=== PATIENT | female | born 1980 | race Caucasian/White ===

== ENCOUNTER 2017-11-29 08:15 | Emergency (ER) | payer OTHER ==
[2017-11-29] MEDS ORDERED: Ketorolac INJ* 30 MG/ML 1 ML VIAL IV PUSH ONE (08:40)
[2017-11-29 09:38] LABS: ABS Basophils 0.2 10^3/ul (0-0.2); ABS Eosinophils 0.2 10^3/ul (0-0.6); ABS Lymphocytes 3.7 10^3/ul (1.0-4.8); ABS Monocytes 1.4 10^3/ul (0-0.8); ABS Neutrophils 9.1 10^3/ul (1.5-7.7); ABS Nucleated RBC 0 10^3/ul; Hematocrit 41 % (35-47); Hemoglobin 14.2 g/dl (12.0-16.0); Lymphocyte % 25.4 % (25-47); Mean Corpuscular HGB Conc 34 g/dl (31-36); Mean Corpuscular Hemoglobin 32 pg (27-31); Mean Corpuscular Volume 92 fL (80-97); Nucleated Red Blood Cells % 0; Platelet Count 268 10^3/ul (150-450); Red Blood Count 4.49 10^6/ul (4.0-5.4); Red Cell Distribution Width 13 % (10.5-15); White Blood Count 14.6 10^3/ul (3.5-10.8)
[2017-11-29 09:46] LABS: INR 1.1 (0.77-1.02)
[2017-11-29 10:05] LABS: EGFR Non-African American 68.7 (>60)
[2017-11-29] MEDS ORDERED: Iohexol 350* (CONTRAST) 500 ML MDV IV ONE (10:17)
--- NOTE | 2017-11-29 11:17 | RAD ---
INDICATION: Chest pain. Short of breath. Evaluate for pulmonary embolus. COMPARISON: There is no current chest x-ray for comparison. TECHNIQUE: Axial source images were obtained from the thoracic inlet to the hemidiaphragms following administration of [address] angiographic technique was utilized. Coronal and sagittal reconstructed images were acquired. CHEST FINDINGS: Neck/thyroid: The visualized neck to include the thyroid appear normal. Chest wall: There are no acute abnormalities of the bony thorax or chest wall. There is no supraclavicular, infraclavicular, or axillary lymphadenopathy. Lungs : There are moderate-sized basilar consolidative changes. Suggest chest x-ray follow-up to document resolution. The pulmonary interstitium appears normal. There are no endobronchial lesions. Cardiomediastinal structures: There is no CT evidence of acute pulmonary embolic disease. The heart is normal in size. There is no pericardial effusion. There is no evidence of aortic aneurysm or dissection. There is mild annuloaortic ectasia with the aortic root measuring 3.5 x 3.7 cm. There is no mediastinal or hilar adenopathy. The esophagus appears normal. Pleura : There are no pleural-based masses or effusions. Other: There are clips in the gallbladder fossa. There is hepatomegaly with hepatic steatosis IMPRESSION: NO CT EVIDENCE OF ACUTE PULMONARY EMBOLUS. BIBASILAR INFILTRATES/ATELECTASIS WITH CONSOLIDATION. MILD ANNULOAORTIC ECTASIA.
[2017-11-29 12:31] VITALS: BP 132/74
--- NOTE | 2017-11-29 12:57 | ED ---
Respiratory - HPI Summary HPI Summary: Patient is a 37-year-old female who presents emergency department for right- sided chest wall pain and shortness of breath times several days. Patient states she's been having swelling and pain to her right lower leg times one week. She was reportedly seen at [facility] ER and had a negative venous doppler for DVT. Patient has a significant past medical history for pulmonary emboli in the past. She states they're not sure why she developed clots but states that numerous family members have had had blood clots as well. Pt. is currently not anticoagulated. Patient is a daily smoker. She otherwise denies symptoms and past medical history of lung problems. Denies recent illness, cough, fever , vomiting, diarrhea, abdominal pain. Symptoms are moderate in severity. Movement and deep inspiration makes symptoms worse. Nothing makes symptoms better. - History of Current Complaint Chief Complaint: EDShortnessOfBreath Stated Complaint: RT SIDE RIB/LEG PAIN Time Seen by Provider: 11/29/17 08:34 Hx Obtained From: Patient Pain Intensity: 0 - Allergy/Home Medications Allergies/Adverse Reactions: Allergies Allergy/AdvReac Type Severity Reaction Status Date / Time No Known Allergies Allergy Verified 11/29/17 08:28 Home Medications: Home Medications NK [No Home Medications Reported] 11/29/17 [History Confirmed 11/29/17] PMH/Surg Hx/FS Hx/Imm Hx Previously Healthy: Yes Endocrine/Hematology History: Denies: Hx Diabetes Cardiovascular History: Denies: Hx Hypertension, Hx Pacemaker/ICD Sensory History: Denies: Hx Hearing Aid Psychiatric History: Denies: Hx Panic Disorder - Surgical History Surgery Procedure, Year, and Place: 3 C-SECTIONS. ADNOIDS. GALLBLADDER Infectious Disease History: No Infectious Disease History: Denies: Traveled Outside the [place] in Last 30 Days - Social History Occupation: Employed Full-time Lives: With Family Alcohol Use: Occasionally Substance Use Type: Reports: None Smoking Status (MU): Current Every Day Smoker Review of Systems Constitutional: Negative Negative: Fever, Chills Eyes: Negative ENT: Negative Positive: Chest Pain Positive: Shortness Of Breath Gastrointestinal: Negative Negative: Abdominal Pain, Vomiting, Diarrhea Genitourinary: Negative Musculoskeletal: Negative Skin: Negative Neurological: Negative All Other Systems Reviewed And Are Negative: Yes Physical Exam Triage Information Reviewed: Yes Vital Signs On Initial Exam: Initial Vitals Temp Pulse Resp BP Pulse Ox 97.6 F 60 40 180/80 94 11/29/17 08:23 11/29/17 08:23 11/29/17 08:23 11/29/17 08:23 11/29/17 08:23 Vital Signs Reviewed: Yes Appearance: Positive: Pain Distress - Pt. sitting up in bed, hyperventilating. Family present. Skin: Positive: Warm, Dry Head/Face: Positive: Normal Head/Face Inspection Eyes: Positive: Normal Neck: Positive: Supple Respiratory/Lung Sounds: Positive: Clear to Auscultation, Breath Sounds Present. Negative: Rales, Rhonchi, Stridor, Wheezes Cardiovascular: Positive: Normal, RRR Neurological: Positive: Normal, CN Intact II-III Psychiatric: Positive: Anxious Diagnostics - Vital Signs Vital Signs Temp Pulse Resp BP Pulse Ox 11/29/17 12:00 98.3 F 88 20 132/74 97 11/29/17 10:00 87 25 95 11/29/17 09:13 87 36 107/72 94 11/29/17 09:00 97 44 94 11/29/17 08:41 96 32 94 11/29/17 08:23 97.6 F 60 40 180/80 94 - Laboratory Lab Results: Lab Results 11/29/17 11/29/17 11/29/17 Range/Units 09:24 09:24 09:24 WBC 14.6 H (3.5-10.8) 10^3/ul RBC 4.49 (4.0-5.4) 10^6/ul Hgb 14.2 (12.0-16.0) g/dl Hct 41 (35-47) % MCV 92 (80-97) fL MCH 32 H (27-31) pg MCHC 34 (31-36) g/dl RDW 13 (10.5-15) % Plt Count 268 (150-450) 10^3/ul MPV 8.0 (7.4-10.4) um3 Neut % (Auto) 62.2 (38-83) % Lymph % (Auto) 25.4 (25-47) % Taylor % (Auto) 9.7 H (0-7) % Eos % (Auto) 1.0 (0-6) % Baso % (Auto) 1.7 (0-2) % Absolute Neuts (auto) 9.1 H (1.5-7.7) 10^3/ul Absolute Lymphs (auto) 3.7 (1.0-4.8) 10^3/ul Absolute Monos (auto) 1.4 H (0-0.8) 10^3/ul Absolute Eos (auto) 0.2 (0-0.6) 10^3/ul Absolute Basos (auto) 0.2 (0-0.2) 10^3/ul Absolute Nucleated RBC 0 10^3/ul Nucleated RBC % 0 INR (Anticoag Therapy) 1.10 H (0.77-1.02) Sodium 135 L (139-145) mmol/L Potassium 3.6 (3.5-5.0) mmol/L Chloride 104 (101-111) mmol/L Carbon Dioxide 19 L (22-32) mmol/L Anion Gap 12 H (2-11) mmol/L BUN 11 (6-24) mg/dL Creatinine 0.92 (0.51-0.95) mg/dL Est GFR ( Amer) 88.3 (>60) Est GFR (Non-Af Amer) 68.7 (>60) BUN/Creatinine Ratio 12.0 (8-20) Glucose 96 (70-100) mg/dL Calcium 9.2 (8.6-10.3) mg/dL Total Bilirubin 1.00 (0.2-1.0) mg/dL AST 15 (13-39) U/L ALT 15 (7-52) U/L Alkaline Phosphatase 71 (34-104) U/L Troponin I 0.00 (<0.04) ng/mL Total Protein 7.4 (6.4-8.9) g/dL Albumin 3.8 (3.2-5.2) g/dL Globulin 3.6 (2-4) g/dL Albumin/Globulin Ratio 1.1 (1-3) Beta HCG, Quant < 0.60 mIU/mL Result Diagrams: 11/29/17 09:24 11/29/17 09:24 Lab Statement: Any lab studies that have been ordered have been reviewed, and results considered in the medical decision making process. Disposition - Course Course Of Treatment: Patient presenting to the ER for pleuritic chest pain and shortness of breath, recent leg swelling and pain, and history of pulmonary emboli. She is afebrile stable vital signs. Oxygen saturation is 94% on room air which is low normal. Given patient's significant history in symptoms today Will obtain CTA chest to rule out PE. Labs and EKG were ordered. Patient was given a dose of Toradol for pain. EKG done at 0845 shows a sinus rhythm of for beats per minute, normal axis, appropriate intervals, no ST elevation or depression. Labs are unremarkable other than elevated WBC of 15,000. CTA is negative for PE or acute findings, reading per radiology. On reexamination patient is resting much more comfortably and eating popcorn. She states pain has greatly improved since Toradol. Suspect pleurisy. Advised patient to take anti-inflammatories at home for pain. To call PCP today to schedule close follow-up appointment. To return to the ear symptoms change or worsen. Patient understands and agrees with plan. - Differential Dx - Cardiopulmonary Differential Diagnoses - Cardiopulmonary: Chest Wall Pain, Hypoxia, Myocardial Infarction, Panic Disorder, Pericarditis, Pleurisy, Pneumothorax, Pulmonary Edema, Pulmonary Embolism - Diagnoses Provider Diagnoses: Pleurisy Discharge - Sign-Out/Discharge Documenting (check all that apply): Discharge/Admit/Transfer - Discharge Plan Condition: Good Disposition: HOME Patient Education Materials: Pleurisy (ED) Referrals: Mj WONG,Jeremie Enriquez [Primary Care Provider] - Additional Instructions: Call PCP today for a follow up appointment NSAIDS for pain as directed Return to ER if symptoms change or worsen - Billing Disposition and Condition Condition: GOOD Disposition: HOME
== END 2017-11-29 12:00 | disposition home or self-care (01) ==
LOC: ED 08:15
DX: R09.1 Pleurisy (principal); F17.200 Nicotine dependence, unspecified, uncomplicated
CPT/HCPCS: 36415; 71275; 80053; 84484; 84702; 85025; 85610; 93005; 96374; 96375; 99283; J1885; Q9967

== ENCOUNTER 2023-12-03 00:49 | Observation (INO) ==
[2023-12-03 02:35] LABS: Hematocrit 39.9 % (35-45); Mean Corpuscular Hemoglobin 32.2 pg (27-33); Mean Platelet Volume 7.7 fL (7.5-11.2); Platelet Count 265 10^3/uL (150-450); Red Blood Count 4.34 10^6/uL (3.63-4.92); Red Cell Distribution Width 12.9 % (12-17)
[2023-12-03 03:04] LABS: ALT 14 U/L (7-52); AST 16 U/L (13-39); Albumin 4.1 g/dL (3.2-5.2); Albumin/Globulin Ratio 1.3 (1-3); Alkaline Phosphatase 73 U/L (35-149); Anion Gap 15 mmol/L (2-16); Blood Urea Nitrogen 8 mg/dL (6-24); C Reactive Protein 199.83 mg/L (<8.01); CO2 Carbon Dioxide 18 mmol/L (22-32); Calcium 9.1 mg/dL (8.6-10.3); Chloride 101 mmol/L (101-111); Creatinine, Serum 1.03 mg/dL (0.51-0.95); Globulin 3.2 g/dL (2-4); Glucose 112 mg/dL (70-100); Potassium 3.9 mmol/L (3.5-5.0); Sodium 134 mmol/L (135-145); Total Bilirubin 0.9 mg/dL (0.2-1.0); Total Protein 7.3 g/dL (6.4-8.9); eGFR CKD-EPI 69.2 (>60)
[2023-12-03 03:11] LABS: HCG Pregnancy < 0.60 mIU/mL
[2023-12-03 04:06] LABS: ABS Basophils 0.3 10^3/uL (0.0-0.1); ABS Eosinophils 0.1 10^3/uL (0.0-0.5); ABS Lymphocytes 3.5 10^3/uL (1.0-4.8); ABS Monocytes 1.7 10^3/uL (0.0-0.9); ABS Neutrophils 12.4 10^3/uL (1.5-7.6); ABS Nucleated RBC 0.02 10^3/ul; Eosinophil % 0.7 %; Lymphocyte % 19.4 %; Nucleated Red Blood Cells % 0.1 %/100WBC (0.0-0.8)
[2023-12-03 04:13] LABS: Urine Appearance Clear; Urine Bilirubin Negative (Negative); Urine Blood Negative (Negative); Urine Color Yellow; Urine Glucose Negative (Negative); Urine Ketones Trace (Negative); Urine Nitrite Negative (Negative); Urine Protein Negative (Negative); Urine Specific Gravity 1.011 (1.002-1.030); Urine Urobilinogen 1+ (Negative)
[2023-12-03 04:27] LABS: Urine Bacteria 1+ /HPF (Absent); Urine Red Blood Cell Trace(0-2/hpf) /HPF (0-Trace); Urine Squamous Epithelial Cell Present /HPF (Absent); Urine White Blood Cell Trace(0-5/hpf) /HPF (0-Trace)
[2023-12-03] MEDS: Iohexol 350 (CONTRAST) 500 ML MDV IV ONE (04:42)
[2023-12-03] MEDS: NS 0.9% 1000 ml BAG 1,000 ML IV ONE (04:58)
[2023-12-03] MEDS: Ondansetron 4 mg VIAL 2 MG/ML 2 ml VIAL IV ONE (04:58)
[2023-12-03] MEDS: Morphine 4 MG/ML VIAL (1 ml) IV ONE ×2 (04:59→08:31)
[2023-12-03] MEDS: Piperacillin/Tazobac 3.375 BAG 3.375 GM/100 ML BAG IV ONE (07:50)
[2023-12-03] MEDS ORDERED: Zosyn per Pharmacy NOTE FOLLOW UP SCH (08:00)
[2023-12-03] MEDS ORDERED: Acetaminophen IV 1 GM/100ML 1,000 MG/100 ML BAG IV PRN (08:58)
[2023-12-03] MEDS ORDERED: HYDROmorphone 0.5 MG/0.5 ML SYRINGE IV SLOW PU PRN (08:59)
[2023-12-03] MEDS: levETIRAcetam 1000MG IVPREMIX 1,000 MG/100 ML BAG IVPB ONE ×2 (10:39→16:23)
[2023-12-03] MEDS ORDERED: Midazolam 5 mg/5 ml VIAL 1 mg/ml 5 ml VIAL (5 mg) ONE (11:02)
[2023-12-03] MEDS ORDERED: fentaNYL 100 mcg/2 ml 50 MCG/ML VIAL ONE ×2 (11:02→12:52)
[2023-12-03] MEDS ORDERED: Rocuronium 50 mg VIAL 10 mg/ml 5 ml VIAL (50 mg) ONE (11:03)
[2023-12-03] MEDS ORDERED: Propofol 10 MG/ML 20 ML BTL ONE (11:06)
[2023-12-03] MEDS ORDERED: Lidocaine 2% PF 5 ML VIAL ONE (11:06)
[2023-12-03] MEDS ORDERED: Lidocaine 1% w EPI 1:100,000 MDV 20 ML VIAL ONE (12:02)
[2023-12-03] MEDS ORDERED: Bupivacaine 0.5% SDV PF 30ML VIAL ONE (12:02)
[2023-12-03] MEDS ORDERED: Acetaminophen IV 1 GM/100ML 1,000 MG/100 ML BAG IV ONE (12:58)
[2023-12-03] MEDS ORDERED: HYDROmorphone 1 MG/1 ML SYRINGE IV PRN (13:04)
[2023-12-03] MEDS ORDERED: Naloxone 0.4 mg VIAL 0.4 mg/ml 1 ml VIAL IV PRN (13:04)
[2023-12-03] MEDS ORDERED: HYDROmorphone 0.5 MG/0.5 ML SYRINGE ONE (13:19)
[2023-12-03] MEDS: Heparin 5000 UNITS/ML 1 mL VIAL SUBCUT ONE (16:23)
[2023-12-03] MEDS: NS 0.9% 1000 ml BAG 1,000 ML IV SCH (16:23)
[2023-12-03] MEDS: ZOSYN 3.375 GM Q8H per EXTENDED INFUSION IV SCH ×2 (16:58→21:25)
[2023-12-03] MEDS: ZOSYN 3.375 GM x ONE DOSE over 30 miuntes IV (18:25)
[2023-12-03] MEDS: Heparin 5000 UNITS/ML 1 mL VIAL SUBCUT SCH (21:14)
[2023-12-04 10:15] VITALS: BP 125/68
== END 2023-12-04 13:40 | disposition home or self-care (01) ==
LOC: ED 00:49 → MEDTELE 09:36 → OR 09:36
PROVIDERS: ADMIT Emergency Medicine; ATTEND Surgery

== ENCOUNTER 2023-12-06 20:22 | Observation (INO) ==
[2023-12-06] MEDS ORDERED: Morphine 4 MG/ML VIAL (1 ml) ONE (20:54)
[2023-12-06] MEDS ORDERED: Ondansetron 4 mg VIAL 2 MG/ML 2 ml VIAL ONE (20:54)
[2023-12-06] MEDS: Morphine 4 MG/ML VIAL (1 ml) IV ONE ×2 (21:00→21:10)
[2023-12-06] MEDS: Ondansetron 4 mg VIAL 2 MG/ML 2 ml VIAL IV ONE (21:00)
[2023-12-06] MEDS: Lactated Ringers 1000 ml BAG 1,000 ML IV ONE (21:05)
[2023-12-06 21:14] LABS: Hematocrit 39.7 % (35-45); Hemoglobin 13.6 g/dL (11.5-14.3); Mean Corpuscular Hemoglobin 32.3 pg (27-33); Mean Corpuscular Hgb Conc 34.3 g/dL (31-36); Mean Platelet Volume 8.3 fL (7.5-11.2); Platelet Count 409 10^3/uL (150-450); Red Blood Count 4.22 10^6/uL (3.63-4.92); Red Cell Distribution Width 13.2 % (12-17)
[2023-12-06 21:25] LABS: Activated Partial Thrombo Time 25.8 seconds (26.0-38.0); INR 1.01 (0.83-1.13)
[2023-12-06 21:53] LABS: ALT 26 U/L (7-52); AST 23 U/L (13-39); Albumin/Globulin Ratio 1.3 (1-3); Alkaline Phosphatase 77 U/L (35-149); Anion Gap 21 mmol/L (2-16); Blood Urea Nitrogen 8 mg/dL (6-24); C Reactive Protein 106.39 mg/L (<8.01); CO2 Carbon Dioxide 14 mmol/L (22-32); Calcium 9.5 mg/dL (8.6-10.3); Chloride 102 mmol/L (101-111); Creatinine, Serum 0.95 mg/dL (0.51-0.95); Globulin 3.2 g/dL (2-4); Glucose 172 mg/dL (70-100); HCG Pregnancy < 0.60 mIU/mL; Potassium 3.4 mmol/L (3.5-5.0); Sodium 137 mmol/L (135-145); Total Bilirubin 0.4 mg/dL (0.2-1.0); Total Protein 7.2 g/dL (6.4-8.9); eGFR CKD-EPI 76.2 (>60)
[2023-12-06] MEDS: HYDROmorphone 1 MG/1 ML SYRINGE IV ONE (22:03)
[2023-12-06] MEDS: Iodixanol (CONTRAST) 320 MG/ML 100 ML SDV IV ONE (22:04)
[2023-12-06 22:16] LABS: ABS Basophils 0.3 10^3/uL (0.0-0.1); ABS Eosinophils 0.4 10^3/uL (0.0-0.5); ABS Neutrophils 13.4 10^3/uL (1.5-7.6); ABS Nucleated RBC 0.01 10^3/ul; Eosinophil % 1.5 %; Lymphocyte % 30.3 %; RBC Morphology Normal (Normal)
[2023-12-06 22:22] LABS: Lipase 48 U/L (11.0-82.0)
[2023-12-06] MEDS ORDERED: Bupivacaine 0.25% EPI 200,000 30 ML SDV ONE (23:17)
[2023-12-06] MEDS ORDERED: Midazolam 2 mg/2 ml VIAL 1 mg/ml 2 ml VIAL (2 mg) ONE (23:26)
[2023-12-06] MEDS ORDERED: fentaNYL 100 mcg/2 ml 50 MCG/ML VIAL ONE (23:26)
[2023-12-06] MEDS ORDERED: Propofol 10 MG/ML 20 ML BTL ONE (23:26)
[2023-12-06] MEDS ORDERED: Rocuronium 50 mg VIAL 10 mg/ml 5 ml VIAL (50 mg) ONE (23:27)
[2023-12-06] MEDS ORDERED: Piperacillin/Tazobac 3.375 BAG 3.375 GM/100 ML BAG IV ONE (23:39)
[2023-12-07] MEDS ORDERED: Dexamethasone IV 4 MG/ML VIAL 1 ml VIAL ONE (00:10)
[2023-12-07] MEDS ORDERED: Ondansetron 4 mg VIAL 2 MG/ML 2 ml VIAL ONE (00:10)
[2023-12-07] MEDS ORDERED: fentaNYL 100 mcg/2 ml 50 MCG/ML VIAL ONE ×2 (00:11→01:13)
[2023-12-07] MEDS ORDERED: Midazolam 2 mg/2 ml VIAL 1 mg/ml 2 ml VIAL (2 mg) ONE (01:11)
[2023-12-07] MEDS: Propofol 10 mg/ml 100 ML BTL 1,000 MG/100 ML BTL IV SCH (01:45)
[2023-12-07] MEDS: Propofol 10 mg/ml 100 ML BTL 1,000 MG/100 ML BTL ONE (02:05)
[2023-12-07] MEDS: fentaNYL INFUSION 50 mcg/mL VL 2,500 MCG/50 ML VIAL IV SCH (02:07)
[2023-12-07 02:16] LABS: Hematocrit 37.2 % (35-45); Hemoglobin 12.4 g/dL (11.5-14.3); Mean Corpuscular Hemoglobin 31.5 pg (27-33); Mean Corpuscular Hgb Conc 33.2 g/dL (31-36); Mean Corpuscular Volume 94.9 fL (80-97); Platelet Count 331 10^3/uL (150-450); Red Blood Count 3.92 10^6/uL (3.63-4.92); Red Cell Distribution Width 13.1 % (12-17); White Blood Count 26.2 10^3/uL (3.8-11.8)
[2023-12-07 02:51] LABS: Albumin 3.6 g/dL (3.2-5.2); Albumin/Globulin Ratio 1.2 (1-3); Calcium 8.3 mg/dL (8.6-10.3); Creatinine, Serum 0.73 mg/dL (0.51-0.95); Globulin 2.9 g/dL (2-4); Magnesium 1.7 mg/dL (1.9-2.7); Potassium 4.4 mmol/L (3.5-5.0); Total Bilirubin 0.3 mg/dL (0.2-1.0); Total Protein 6.5 g/dL (6.4-8.9); eGFR CKD-EPI 104.6 (>60)
[2023-12-07 03:03] LABS: ABS Basophils 0.2 10^3/uL (0.0-0.1); ABS Lymphocytes 2.8 10^3/uL (1.0-4.8); ABS Monocytes 1.7 10^3/uL (0.0-0.9); ABS Neutrophils 21.5 10^3/uL (1.5-7.6); Eosinophil % 0.1 %; Lymphocyte % 10.8 %
[2023-12-07] MEDS: Heparin DRIP 25,000 UNITS BAG 25,000 UNITS/250 ML BAG IV SCH (03:27)
[2023-12-07 03:28] LABS: Urine Appearance Clear; Urine Bilirubin Negative (Negative); Urine Blood Trace (Negative); Urine Color Yellow; Urine Glucose Negative (Negative); Urine Ketones Trace (Negative); Urine Nitrite Negative (Negative); Urine Protein Trace (Negative); Urine Specific Gravity >1.050 (1.002-1.030); Urine Urobilinogen Negative (Negative); Urine pH 5.5 (5.0-8.0)
[2023-12-07 03:41] LABS: PCO2 Arterial 34 mmHg (35-45); PO2 Arterial 75 mmHg (80-100)
[2023-12-07] MEDS: Heparin 5000 UNITS/ML 1 mL VIAL IV SCH (03:44)
[2023-12-07] MEDS: Piperacillin/Tazobac 3.375 BAG 3.375 GM/100 ML BAG IV SCH (04:14)
[2023-12-07 04:30] VITALS: BP 161/101
[2023-12-07] MEDS: Chlorhexidine MOUTHWASH 0.12% 15 ML UDC TOPICAL SCH (05:35)
[2023-12-07] MEDS ORDERED: Famotidine IV 10 MG/ML 2 ml VIAL (20 mg) IV SLOW PU SCH (09:00)
== END 2023-12-07 05:07 | disposition short-term general hospital (02) ==
LOC: EDHOLD 20:22 → ED 20:22 → EDHOLD 23:19 → ICU 12-07 01:42
PROVIDERS: ADMIT Surgery; ATTEND Surgery